=== PATIENT | male | born 2005 | race Caucasian/White ===

== ENCOUNTER 2024-11-08 16:28 | Emergency (ER) | payer MEDICAID, SELFPAY ==
[2024-11-08 16:30] VITALS: BP 145/77; PULSE 96; RESP 16; TEMP 37; O2SAT 98
--- NOTE | 2024-11-08 16:50 | W.ED.GENAD ---
Discharge Plan Disposition Patient Disposition: Home Condition: Stable Discharge Details Clinical Impression: Burn of right wrist Primary Care Provider: Preet Ruvalcaba ED Provider: Anni Norton Home Meds and New Rx's Prescriptions: No Action No Known Home Meds Discharge Instructions Instructions: Skin ceja, Wound Care ED Additional Instructions: A referral was placed for the [facility] burn clinic. You should be seen by them within the next week. You may call the number if you do not hear from them within the next 2 to 3 days. Keep clean and dry. You may apply the bacitracin ointment once daily. Then apply a nonadherent dressing. Wash daily under running soap and water. Allow to air dry at least 1 to 2 hours a day. Do not attempt to open up the blisters. Please return for any signs of infection, red streaks drainage swelling fever or any concerns. Please take Tylenol or Ibuprofen with food every 4-6 hours as needed for pain and swelling. Stand Alone Forms: Work Release Referrals: [facility] [Outside] - 1 week (Burn Center: [phone]) Discharge Data Discharge Date/Time-TO BE ENTERED AT DEPARTURE: 11/08/24 17:46 HPI General Mode of arrival: ambulatory. Date/Time Provider Initiated Documentation: 11/08/24 16:36. Limitations to Documentation: no limitations. Information obtained by: patient, RN notes reviewed and old records reviewed. HPI Narrative: 19-year-old male presents to the ER with a chief complaint of right wrist burn. Reports he was at work around 1130 was wearing gloves and put his hand into some hot scalding water which he reports is approximately 995 degrees the water went up over his gloves. He has approximately 3 inch area just above his wrist with a circumferential second and first-degree burn. There is a large blister which is fluid-filled. He is able to flex and extend his wrist. Denies any significant pain. He is right-hand dominant. Vital signs are stable. Does have a history of pectus excavated him, acne and heart murmur of . He has not taken any medications prior to arrival. Related Data Home Medications ?Medication ?Instructions ?Recorded ?Confirmed Unknown [No Known Home Meds] 12/10/18 11/08/24 Allergies Allergy/AdvReac Type Severity Reaction Status Date / Time No Known Allergies Allergy Verified 11/08/24 16:35 General Stated Complaint: Burn JASEN: 3 Review of Systems Integumentary/Breasts Skin/Breast: Reports as per HPI and Reports wounds (Burn right wrist) Exam Skin Wounds: wounds noted (Circumferential second and first-degree ceja with blister) right distal wrist Extrem Right upper extremity: wrist Details: swelling, normal ROM and warmth Elbow/forearm/wrist images: 1. Circumferential burn with large blister 2. Burn appears second and first-degree. 3. Burn Course Vital Signs Vital signs: Vital Signs Temperature 37.0 C 11/08/24 16:30 Pulse 96 H 11/08/24 16:30 Respiratory Rate 16 11/08/24 16:30 Blood Pressure 145/77 H 11/08/24 16:30 Pulse Oximetry 98 11/08/24 16:30 Temperature 37.0 C 11/08/24 16:30 Temperature Source Oral 11/08/24 16:30 Pulse 96 H 11/08/24 16:30 Respiratory Rate 16 11/08/24 16:30 Blood Pressure 145/77 H 11/08/24 16:30 Pulse Oximetry 98 11/08/24 16:30 Oxygen Delivery Method Room Air 11/08/24 16:30 Oxygen Flow Rate 0 11/08/24 16:30 Pain Level 2 11/08/24 16:30 Medical Decision Making 19-year-old male presents to the ER with a chief complaint of right wrist burn. Reports he was at work around 1130 was wearing gloves and put his hand into some hot scalding water which he reports is approximately 995 degrees the water went up over his gloves. He has approximately 3 inch area just above his wrist with a circumferential second and first-degree burn. There is a large blister which is fluid-filled. He is able to flex and extend his wrist. Denies any significant pain. He is right-hand dominant. Vital signs are stable. Does have a history of pectus excavated him, acne and heart murmur of . He has not taken any medications prior to arrival. 1650: Spoke with [facility] transfer center to speak with on-call burn provider. I do think this patient needs to follow-up in the burn clinic due to the circumferential nature of the burn and near a joint. Will consult with their on-call surgeon. Ordered bacitracin and dressing. 1728: Spoke with [facility] transfer Center, they are unable to get ahold of surgeon at this time, will place patient on the referral list for a urgent referral to [facility] burn center. Will discharge with strict return instructions, to return if any signs of infection or concerns. Will give bacitracin and instruct to apply daily with a nonadherent dressing. This text was generated using [employer] dictation system, please disregard any oddities of phrase or misspellings. Quality:SDOH Health Related Social Needs: No Data to Display PFSH All Active Problems (Updated 11/08/24 @ 16:57 by Anni Norton NP) Burn of right wrist (Acute) Dental caries (Acute 05/31/13) Pectus excavatum (Acute 05/31/13) Routine child health exam (Acute 05/31/13) Routine child health exam (Acute 12/09/17) Medical History (Updated 11/08/24 @ 16:57 by Anni Norton NP) Pectus excavatum Acne Heart murmur of Surgical History Circumcision Family History Mother Healthy adult on routine physical examination Father Healthy adult on routine physical examination GRANDPARENT Essential hypertension Heart disease Hyperlipidemia Mental disorder ANXIETY Asthma Other Neoplasm Social History Smoking/Tobacco Use Status: Never Second Hand Exposure: No Smoking risk assessment performed?: Yes Substance use type: does not use Adopted: No Foster care: No Education Level: high school Details: HOME SCHOOLED Pets and animals: No
[2024-11-08] MEDS: Bacitracin 30 GM TUBE TP (17:00)
[2024-11-08 17:45] VITALS: BP 104/59; PULSE 88; RESP 15; O2SAT 98
== END 2024-11-08 17:46 | disposition home or self-care (01) ==
PROVIDERS: Emergency Provider Registered Nurse Emergency; PCP Pediatrics
DX: T23.271A Burn of second degree of right wrist, initial encounter (principal); T31.0 Burns involving less than 10% of body surface; X12.XXXA Contact with other hot fluids, initial encounter; Y93.89 Activity, other specified; Y92.89 Other specified places as the place of occurrence of the external cause; Y99.0 Civilian activity done for income or pay
CPT/HCPCS: 99284